=== PATIENT | male | born 1950 | race Asian ===

== ENCOUNTER 2018-11-20 15:51 | Day surgery (SDC) | payer MEDICARE ==
[2018-11-20] MEDS ORDERED: Cyclopentolate 1% Opth Drop 2 ML BOT ONE (16:06)
[2018-11-20] MEDS ORDERED: Phenylephrine 2.5% Ophth Soln 5 ML BOT ONE (16:06)
[2018-11-20] MEDS ORDERED: Cyclopentolate 1% Opth Drop 2 ML BOT FS SCH (16:20)
[2018-11-20] MEDS ORDERED: Phenylephrine 2.5% Ophth Soln 5 ML BOT FS SCH (16:20)
[2018-11-20] MEDS ORDERED: Fluorouracil 100 MG, Enoxaparin Sodium 25 MG, EPINEPHrine 0.3 MG in Ophthalmic Irrigati... IRR SCH (16:30)
[2018-11-20] MEDS ORDERED: Fentanyl 100 MCG/2 ML VIAL ONE (16:35)
[2018-11-20] MEDS ORDERED: Lidocaine 2% Jelly 5 ML TUBE ONE (17:05)
--- NOTE | 2018-11-21 10:26 | OP ---
DATE OF PROCEDURE: 11/20/2018 PRINCIPAL PREOPERATIVE DIAGNOSIS: Rhegmatogenous retinal detachment, macula of left eye. POSTOPERATIVE DIAGNOSIS: Rhegmatogenous retinal detachment, macula of left eye. BAND CUTTER: None. PROCEDURE PERFORMED: 1. 25-gauge pars plana vitrectomy, left eye. 2. Rhegmatogenous retinal detachment repair of left eye. 3. Endolaser retinopexy and cerclage, left eye. 4. 15% SF6 fill, left eye. ESTIMATED BLOOD LOSS: None. SPECIMENS REMOVED: None. ANESTHESIA: LMA with retrobulbar block. DESCRIPTION OF PROCEDURE: The patient was identified in the preoperative holding area. The correct eye being the left eye was marked for surgery. The patient was taken to the operating room, where general anesthesia was induced. A retrobulbar block was administered to the left eye. The block consisted of 1:1 ratio 2% lidocaine and 0.75% Marcaine. Total of 5 mL was administered. The left eye was prepped and draped in the usual sterile ophthalmic fashion for surgery. A wire lid speculum was placed. A standard 25-gauge pars plana vitrectomy platform was fashioned with the trocars placed approximately 3.5 mm from the limbus. The infusion was noted to be within the vitreous cavity prior to being turned on to a pressure of 30 mmHg. The light pipe and micro vitrector were introduced in the eye under visualization of the BIOM. A rhegmatogenous retinal detachment was noted from approximately 12 o'clock to 3 o'clock with a horseshoe retinal defect at 2 o'clock. A careful core and peripheral shave vitrectomy was performed taking great care to relieve all traction from the aforementioned defect. Following completion of vitrectomy, the retinal defect was marked with endo- cautery followed by creation of superotemporal drainage retinotomy with the endo-cautery followed by opening with flute needle. An air-fluid exchange was performed which allowed for complete flattening of the retina. Endolaser was used to provide barricade around the retinotomy site as well as around the defect and a 360 cerclage with sparing of the 3 and 9 o'clock meridians. Following endolaser, the flute needle was reintroduced in the eye to remove any residual subretinal fluid. An air-gas exchange was performed with 15% SF6. The cannulas were sequentially removed with suturing of the superior 2 sclerotomies with 7-0 Vicryl suture. Following suturing, all sclerotomies were noted to be gas tight. Subconjunctival Kenalog and Ancef were administered. The wire lid speculum was removed followed by application of light patch and shield. The patient tolerated the procedure well and taken to outpatient recovery area in good condition. He is to position on the right side and is to follow-up with Dr. Chu at [facility] on at 0800. Job ID: [id number] [facility]
== END 2018-11-20 20:00 | disposition home or self-care (01) ==
LOC: SDC 15:51
PROVIDERS: ATTEND Ophthalmology Retina Specialist
PROC: 08T53ZZ Resection of Left Vitreous, Percutaneous Approach (ICD-10-PCS; principal; 2018-11-20)
DX: H33.002 Unspecified retinal detachment with retinal break, left eye (principal); Z88.0 Allergy status to penicillin
CPT/HCPCS: 67025; J0171; J1650; J3010; J9190

== ENCOUNTER 2019-01-11 07:20 | Day surgery (SDC) | payer MEDICARE ==
[2019-01-10 11:47] VITALS: BMI 27.0
[~2019-01-11 07:20] MED LIST: EPINEPHrine 0.3 MG in Ophthalmic Irrigation Solution 500 ML IVP SCH
[2019-01-11] MEDS ORDERED: Phenylephrine 2.5% Ophth Soln 5 ML BOT ONE (08:09)
[2019-01-11] MEDS ORDERED: Cyclopentolate 1% Opth Drop 2 ML BOT ONE (08:09)
[2019-01-11] MEDS ORDERED: Midazolam HCl 2 mg/2 ml Vial ONE (10:05)
[2019-01-11] MEDS ORDERED: Fentanyl 100 MCG/2 ML VIAL ONE (10:05)
--- NOTE | 2019-01-11 18:41 | OP ---
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 PROCEDURES PERFORMED: 1. A 25-gauge pars plana vitrectomy, left eye. 2. Rhegmatogenous retinal detachment repair with peeling, left eye. 3. Endolaser, left eye. 4. Silicone oil fill, left eye. ESTIMATED BLOOD LOSS: None. SPECIMENS REMOVED: None. COMPLICATIONS: None. DESCRIPTION OF PROCEDURE: The patient was identified in the preop holding area. Correct eye being the left eye was marked for surgery. The patient was taken to the operating room, where MAC anesthesia was induced. A retrobulbar block was administered to the left eye. The block consisted of 1:1 ratio of 4% lidocaine and 0.75% Marcaine. A total of 5 mL was administered. The left eye was then prepped and draped in usual sterile ophthalmic fashion for surgery. A wire lid speculum was placed. A standard 25-gauge pars plana vitrectomy platform was fashioned with the trocars placed approximately 3.5 mm from the limbus. The infusion was noted to be within the vitreous cavity prior to being turned on to infusion pressure of 30 mmHg. The light pipe Micro vitrector introduced in the eye under visualization with a [employer] viewing system. A combined rhegmatogenous/tractional retinal detachment was noted with grade C PVR. Inferior defects were noted along with posterior vitreal retinopathy. An additional star fold was noted at 6 o'clock around the equator of the eye. A repeat peripheral shave vitrectomy was performed with the assistance of scleral depression. The PVR was taken with Micro vitrector were safe. Subsequently, the macular forceps were used to remove any star folds resting on the surface of the retina. Endocautery was subsequently used to amandeep all defects and create a superotemporal drainage retinotomy site. An air-fluid exchange was performed, which allowed for complete flattening of the retina. Subsequently endolaser was used to provide barricade around all defects as well as provide post laser slightly posterior to the preexisting later for further strengthening of the retina. A complete silicone oil fill was subsequently achieved. The cannulas were sequentially removed and all sclerotomies were sutured with 8-0 Vicryl suture. Following suturing, all sclerotomies were noted to be watertight. Subconjunctival Ancef and Kenalog were injected. The wire lid speculum was removed followed by application of TobraDex ophthalmic ointment and light patch and shield. The patient tolerated procedure well, taken to outpatient recovery in good condition. Job ID: [id number]
== END 2019-01-11 12:17 | disposition home or self-care (01) ==
LOC: SDC 07:20
PROVIDERS: ATTEND Ophthalmology Retina Specialist
PROC: 08T53ZZ Resection of Left Vitreous, Percutaneous Approach (ICD-10-PCS; principal; 2019-01-11)
DX: H33.42 Traction detachment of retina, left eye (principal); H33.002 Unspecified retinal detachment with retinal break, left eye; Z88.0 Allergy status to penicillin
CPT/HCPCS: 67113; C1814; J0171; J2250; J3010

== ENCOUNTER 2019-05-15 05:47 | Day surgery (SDC) | payer MEDICARE ==
[~2019-05-15 05:47] MED LIST changes: +Acetaminophen 500 MG TAB PO PRN; +Cyclopentolate 1% Opth Drop 2 ML BOT L EYE SCH; +EPINEPHrine 0.3 MG in Ophthalmic Irrigation Solution 500 ML IRR SCH; -EPINEPHrine 0.3 MG in Ophthalmic Irrigation Solution 500 ML IVP SCH; +Phenylephrine 2.5% Ophth Soln 5 ML BOT L EYE SCH
[2019-05-15] MEDS ORDERED: Phenylephrine 2.5% Ophth Soln 5 ML BOT ONE (06:06)
[2019-05-15] MEDS ORDERED: Cyclopentolate 1% Opth Drop 2 ML BOT ONE (06:06)
[2019-05-15] MEDS ORDERED: Fentanyl 100 MCG/2 ML VIAL ONE (06:35)
[2019-05-15] MEDS ORDERED: Midazolam HCl 2 mg/2 ml Vial ONE (06:35)
[2019-05-15] MEDS ORDERED: PROPOFOL 20 ML ONE (06:35)
--- NOTE | 2019-05-15 08:43 | OP ---
DATE OF PROCEDURE: 05/15/2019 NAME OF PROCEDURES PERFORMED: 1. 25-gauge pars plana vitrectomy, left eye. 2. Silicone oil removal, left eye. 3. Epiretinal membrane/internal limiting membrane removal, left eye. ESTIMATED BLOOD LOSS: None. SPECIMENS REMOVED: None. COMPLICATIONS: None. PREOPERATIVE DIAGNOSES: 1. Silicone oil status post retinal detachment repair. 2. Epiretinal membrane, left eye. POSTOPERATIVE DIAGNOSES: 1. Silicone oil status post retinal detachment repair. 2. Epiretinal membrane, left eye. SUMMARY OF OPERATION: The patient was identified in the preoperative holding area, where the correct eye being the left eye was marked for surgery. The patient was taken to the operating room, where MAC anesthesia was induced. A retrobulbar block was administered to the left eye. The block consisted of 1:1 ratio of 4% lidocaine and 0.75% Marcaine. A total of 5 mL was administered. The left eye was then prepped and draped in the usual sterile ophthalmic fashion for surgery. A wire-clip lid speculum was placed. A standard 25-gauge pars plana vitrectomy platform was fashioned with trocars placed approximately 3.5 mm from the limbus. The infusion was noted to be within the vitreous cavity prior to being turned on to an infusion pressure of 30 mmHg. The silicone oil extrusion device was inserted in the eye and removed the majority of the silicone oil. Subsequently, the light pipe and flute needle were inserted in the eye under the visualization of BIOM viewing system. The retina was noted to be stable, flat and attached with an epiretinal membrane covering the macula. Three sequential air-fluid exchanges were performed to remove any residual silicone oil. Following oil removal, the internal limiting membrane was stained with ICG dye. Using the Kelvin ILM forceps, the epiretinal membrane/internal limiting membrane complex removal was peeled in a circumferential fashion about the fovea. The peel extended approximately 2 disk diameters in radius circumferentially about the fovea. Following peeling, the Micro vitrector was reintroduced in the eye to remove any residual vitreous debris. The cannulas were sequentially removed with the superior 2 sclerotomies sutured with 8-0 Vicryl suture. Following suturing, all sclerotomies were noted to be watertight. Subconjunctival Kenalog was injected. The wire-clip lid speculum was removed followed by application of Tobradex ophthalmic ointment and a light patch and shield. The patient tolerated the procedure well and was taken to the outpatient recovery area in good condition. Job ID: [id number]
[2019-05-15] MEDS ORDERED: Bupivacaine PF 0.75% SDV 10 ML ONE (09:19)
[2019-05-15] MEDS ORDERED: Lidocaine 4% PF 5 ML AMP ONE (09:19)
[2019-05-15] MEDS ORDERED: Indocyanine Green 25 MG/10 ML VIAL ONE (09:19)
[2019-05-15] MEDS ORDERED: Triamcinolone 40 MG/ML VIAL ONE (09:19)
[2019-05-15] MEDS ORDERED: Maxitrol 0.1% Opth Oint 3.5 GM TUBE ONE (09:19)
== END 2019-05-15 09:17 | disposition home or self-care (01) ==
LOC: SDC 05:47
PROVIDERS: ATTEND Ophthalmology Retina Specialist
PROC: 08T53ZZ Resection of Left Vitreous, Percutaneous Approach (ICD-10-PCS; principal; 2019-05-15)
PROC: 08NF3ZZ Release Left Retina, Percutaneous Approach (ICD-10-PCS; 2019-05-15)
PROC: 08953ZZ Drainage of Left Vitreous, Percutaneous Approach (ICD-10-PCS; 2019-05-15)
DX: H35.372 Puckering of macula, left eye (principal); Z79.82 Long term (current) use of aspirin; Z79.899 Other long term (current) drug therapy; Z88.0 Allergy status to penicillin; Z88.8 Allergy status to other drugs, medicaments and biological substances; Z95.5 Presence of coronary angioplasty implant and graft
CPT/HCPCS: J0171; J2001; J2250; J2704; J3010; J3301; J3490